=== PATIENT | male | born 1985 | race Caucasian/White ===

== ENCOUNTER 2022-12-31 04:11 | Emergency (ER) | payer BC, SELFPAY ==
[2022-12-31] MEDS ORDERED: Ketorolac Tromethamine 30 MG/ML VIAL ONE (04:34)
[2022-12-31] MEDS ORDERED: Dexamethasone 10 MG/ML VIAL ONE (04:34)
== END 2022-12-31 04:48 | disposition home or self-care (01) ==
LOC: CSHERS 04:11
DX: M54.16 Radiculopathy, lumbar region (principal); E11.9 Type 2 diabetes mellitus without complications; I10 Essential (primary) hypertension
CPT/HCPCS: 96372; 99283; J1100; J1885

== ENCOUNTER 2023-03-25 23:10 | Emergency (ER) | payer OTHER ==
[2023-03-26] MEDS ORDERED: Ketorolac Tromethamine 30 MG/ML VIAL ONE (00:26)
[2023-03-26] MEDS ORDERED: Acetaminophen 500 MG TAB ONE (00:26)
== END 2023-03-25 23:30 | disposition home or self-care (01) ==
LOC: CSHERS 23:10
DX: M79.671 Pain in right foot (principal); M79.672 Pain in left foot; I10 Essential (primary) hypertension; M54.50 Low back pain, unspecified; E11.9 Type 2 diabetes mellitus without complications
CPT/HCPCS: 96372; 99283

== ENCOUNTER 2023-07-10 01:19 | Emergency (ER) | payer OTHER, SELFPAY ==
[2023-07-10 02:23] LABS: #Eosinphils 0.2 10x3/uL (0.0-0.5); #Monocytes 0.5 10x3/uL (0.0-1.1); #Neutrophils 4.1 10x3/uL (1.5-8.4); %Basophils 0.3 % (0.0-2.0); %Lymphocytes 44.1 % (18.0-47.0); %Monocytes 6.2 % (0.0-10.0); %Neutrophils 47.3 % (40.0-75.0); Hematocrit 48.3 % (38.8-50.0); Hemoglobin 16.7 g/dL (13.5-17.5); Mean Corpuscular HGB CONC 34.6 g/dL (32.0-36.0); Mean Corpuscular Hemoglobin 30.1 pg (27.0-33.0); Mean Platelet Volume 11.2 fl (7.4-10.4); Platelet Count 172 10x3/uL (150-450); Red Blood Cell (RBC) Count 5.55 10x6/uL (4.32-5.72); White Blood Cell (WBC) Count 8.6 10x3/uL (3.5-10.5)
[2023-07-10 02:27] LABS: Anion Gap 15 mmol/L (10-20); BUN (Urea Nitrogen) 8 mg/dL (8.9-20.6); Calc. Creatinine Clearance 0 mL/min (70-130); Calcium 9.3 mg/dL (7.8-10.44); Carbon Dioxide 21 mmol/L (22-29); Chloride 100 mmol/L (98-107); Estimated GFR 102; Potassium 3.7 mmol/L (3.5-5.1); Sodium 132 mmol/L (136-145)
[2023-07-10 02:34] LABS: Glucose 524 mg/dL (70-105)
[2023-07-10 02:39] LABS: Troponin I Less than 0.010 ng/mL (< 0.028)
[2023-07-10] MEDS ORDERED: Insulin Regular 300 UNITS/3 ML VIAL ONE (02:48)
[2023-07-10 04:22] LABS: Troponin I Less than 0.010 ng/mL (< 0.028)
== END 2023-07-10 04:34 | disposition home or self-care (01) ==
LOC: CSHERS 01:19
DX: R07.9 Chest pain, unspecified (principal); E11.65 Type 2 diabetes mellitus with hyperglycemia; I10 Essential (primary) hypertension; Z79.4 Long term (current) use of insulin
CPT/HCPCS: 36415; 36416; 71045; 80048; 84484; 85025; 93005; 93010; 96374; J1815

== ENCOUNTER 2023-09-22 13:21 | Emergency (ER) | payer OTHER ==
[2023-09-22] MEDS ORDERED: HYDROcodone/Acetaminophen 10/325 mg Tablet ONE (13:58)
[2023-09-22] MEDS ORDERED: Ketorolac Tromethamine 30 MG (1 mL) VIAL ONE (14:09)
[2023-09-22] MEDS ORDERED: Orphenadrine Citrate 60 MG/2 ML VIAL ONE (15:19)
== END 2023-09-22 15:52 | disposition home or self-care (01) ==
LOC: EEVIPCON 13:21 → CSHERS 13:21
DX: M54.50 Low back pain, unspecified (principal); E11.9 Type 2 diabetes mellitus without complications; I10 Essential (primary) hypertension
CPT/HCPCS: 72072; 72100; 96372; J1885; J2360